=== PATIENT | male | born 1975 | race Caucasian/White ===

== ENCOUNTER 2022-01-29 20:03 | Emergency (ER) | payer OTHER ==
[~2022-01-29 20:03] MED LIST: FLEXERIL 10 MG10 MG PO; TYLENOL 500 MG500 MG PO
[2022-01-29 21:41] LABS: HEMOGLOBIN 13.5 gm/dl (14.0-17.5); RED BLOOD COUNT 4.14 M/UL (4.20-5.50); WHITE BLOOD COUNT 10.5 K/UL (4.5-11.0)
[2022-01-29 21:57] LABS: BUN/CREATININE RATIO 16 (0-10)
== END 2022-01-30 01:25 ==
LOC: ER1 20:03
PROVIDERS: Physician Assistant
DX: S12.500A Unspecified displaced fracture of sixth cervical vertebra, initial encounter for closed fracture (principal); W20.8XXA Other cause of strike by thrown, projected or falling object, initial encounter
CPT/HCPCS: 70450; 70486; 72125; 72128; 80053; 85025; 93005; 96374; 96375; 99285; J2270; J2405

== ENCOUNTER 2022-02-23 22:57 | Emergency (ER) | payer OTHER | END 2022-02-23 23:35 | disposition left against medical advice (07) | LOC: ER1 22:57 | DX: Z53.21 Procedure and treatment not carried out due to patient leaving prior to being seen by health care provider (principal) ==

== ENCOUNTER → 2022-02-26 | Outpatient (CLI) | payer OTHER | LOC: KOH-I 13:22 | DX: M54.6 Pain in thoracic spine (principal); M54.50 Low back pain, unspecified; M54.2 Cervicalgia; M47.814 Spondylosis without myelopathy or radiculopathy, thoracic region | CPT/HCPCS: 71046; 72040; 72070; 72100 ==